=== PATIENT | male | born 1950 | race Caucasian/White ===

== ENCOUNTER → 2016-08-15 | Outpatient (CLI) | payer OTHER ==
[~2016-08-15] MED LIST: ALPRAZOLAM 0.50.5 M1; LISINOPRIL10 MG; NORCO 5-325 TA1 EACH PO; SIMVASTATIN20 MG
== END ==
LOC: CAT 11:27
DX: R07.9 Chest pain, unspecified (principal)

== ENCOUNTER → 2017-05-23 | Outpatient (CLI) | payer OTHER ==
--- NOTE | ~2017-05-23 | 2DMMODE ---
[facility] [address] [facility] [address] 2 D/M-MODE ECHOCARDIOGRAM Name: MOKADE Room #: REG [facility] [id number] Admission: 05/23/17 Attend Phys: Oseas Quintanilla Discharge: Date of : 50 Date of Service: 05/23/17 1244 Report #: [id number] THIS REPORT FOR: //name// APPROVED REPORT Study performed: 05/23/2017 12:05:53 EXAM: Comprehensive 2D, Doppler, and color-flow Echocardiogram Patient Location: Out-Patient Room #: Echo lab Status: routine BSA: 2.09 HR: 77 bpm BP: 124/78 mmHg Other Information Study Quality: Good Indications Chest Pain Hypertension/HDD HLP. 2D Dimensions RVDd: 34.16 mm LVEF(%): 60.32 (>50%) IVSd: 11.11 (7-11mm) LVOT Diam: 23.74 (18-24mm) LVDd: 52.76 mm PWd: 11.42 (7-11mm) Ascending Ao: 34.94 (22-36mm) LVDs: 35.64 (25-40mm) Aortic Root: 34.66 mm IVC: 19.00 mm Cisneros's LVEF: 60.32 % Volumes Left Atrial Volume (Systole) Single Plane 4CH: 46.65 mL Single Plane 2CH: 61.54 mL LA ESV Index: 28.00 mL/m2 Aortic Valve AoV Peak Apolinar.: 0.97 m/s AO Peak Gr.: 3.77 mmHg LVOT Max P.93 mmHg LVOT Max V: 0.99 m/s PABLO Vmax: 4.52 cm2 Mitral Valve E/A Ratio: 0.9 [facility] [place] [address] 2 D/M-MODE ECHOCARDIOGRAM Name: KADE MO Room #: [facility]#: [id number] Admission: 05/23/17 Attend Phys: Oseas Quintanilla Discharge: Date of : 50 Date of Service: 05/23/17 1244 Report #: [id number] MV Decel. Time: 156.30 ms MV E Max Apolinar.: 0.58 m/s MV A Apolinar.: 0.67 m/s MV PHT: 45.33 ms IVRT: 119.95 ms Pulmonary Valve PV Peak Apolinar.: 1.10 m/s PV Peak Gr.: 4.87 mmHg Pulmonary Vein P Vein S: 0.53 m/s P Vein A: 0.28 m/s P Vein D: 0.36 m/s P Vein A Dur.: 101.5 msec P Vein S/D Ratio: 1.47 Tricuspid Valve TR Peak Apolinar.: 2.48 m/s TR Peak Gr.: 24.57 mmHg PA Pressure: 30.00 mmHg Left Ventricle The left ventricle is normal size. There is normal LV segmental wall motion. There is normal left ventricular wall thickness. The left ventricular systolic function is normal. The left ventricular ejection fraction is within the normal range. LVEF is 55-60%. Grade I - abnormal relaxation pattern. Right Ventricle The right ventricle is normal size. The right ventricular systolic function is normal. Atria The left atrium size is normal. The right atrium size is normal. Aortic Valve The aortic valve is normal in structure. The Aortic valve is sclerotic. Trace aortic regurgitation. There is no aortic valvular stenosis. Mitral Valve The mitral valve is normal in structure. Mild mitral regurgitation. No evidence of mitral valve stenosis. Tricuspid Valve The tricuspid valve is normal in structure. There is trace tricuspid regurgitation There is no pulmonary hypertension. [address] [address] 2 D/M-MODE ECHOCARDIOGRAM Name: KADE MO Room #: REG [facility]#: [id number] Admission: 05/23/17 Attend Phys: Oseas Quintanilla Discharge: Date of : 50 Date of Service: 05/23/17 1244 Report #: [id number] Pulmonic Valve The pulmonary valve is normal in structure. There is no pulmonic valvular regurgitation. Great Vessels The aortic root is normal in size. IVC is normal in size and collapses >50% with inspiration. Pericardium There is no pericardial effusion. <Conclusion> The left ventricle is normal size. LVEF is 55-60%. The aortic valve is normal in structure. The Aortic valve is sclerotic. Trace aortic regurgitation. The mitral valve is normal in structure. Mild mitral regurgitation. The tricuspid valve is normal in structure. There is trace tricuspid regurgitation There is no pulmonary hypertension. The pulmonary valve is normal in structure. There is no pericardial effusion. <ELECTRONICALLY SIGNED> By: Oseas Sharma MD 05/23/17 1244 1244 1244 Oseas Sharma MD /INF
== END ==
LOC: CV 09:51
DX: R07.9 Chest pain, unspecified (principal); I10 Essential (primary) hypertension; E78.5 Hyperlipidemia, unspecified

== ENCOUNTER → 2020-04-22 | Outpatient (CLI) | payer OTHER | LOC: ULTRA 09:07 | PROVIDERS: ATTEND Family Medicine | DX: I70.0 Atherosclerosis of aorta (principal) ==

== ENCOUNTER → 2021-09-16 | Outpatient (CLI) | payer OTHER ==
--- NOTE | 2021-09-16 12:48 | EXE ---
[facility] [place] [address] STRESS ECHOCARDIOGRAM Name: KADE MO Room #: REG [facility]#: [id number] Admission: 09/16/21 Attend Phys: Randall Lester MD Discharge: Date of : 50 Report #: [id number] THIS REPORT FOR: cc: Randall Lester MD, Neal A. MD Lammoglia, Francisco J. MD ~ APPROVED REPORT Study performed: 09/16/2021 10:28:27 Exam: Stress Echocardiogram Indication: Chest pain Patient Location: Out-Patient Room #: 2 Status: routine Ht: 5 ft 10 in HR: 60 bpm BP: 118/76 mmHg Rhythm: NSR Medical History Cardiac Risk Factors: HTN Exercise History: Physically active Procedure The patient underwent an Exercise Stress Test using the Bo Protocol. Blood pressure, heart rate, and EKG were monitored. An Echocardiogram was performed by certified veterinary technician in four stages in quad fashion. At peak stress, four selected images were obtained and placed side by side with resting images for comparison. Stress Test Details Stress Test: Exercise stress testing was performed using a Bo protocol. HR Resting HR: 60 bpm Max Heart Rate (APMHR): 149 bpm Max HR Achieved: 133 bpm Target HR (85% APMHR): 126 bpm % of APMHR: 89 Recovery HR: 72 bpm HR response to stress: Normal HR response to stress BP Resting BP: 118/76 mmHg Max BP: 150/70 mmHg [facility] [address] [place] [address] STRESS ECHOCARDIOGRAM Name: KADE MO Room #: REG [facility]#: [id number] Admission: 09/16/21 Attend Phys: Randall Lester, Discharge: Date of : 50 Report #: [id number] Recovery BP: 110/60 mmHg BP response to stress: Normal blood pressure response to stress. ECG Clinical Reason for Termination: Maximal effort Exercise duration: 6 min sec Highest Stage Achieved: Stage 2: 2.5 mph at 12% grade. Exercise capacity: 7 METs Overall Exercise Capacity for Age: Good Stress ECG Conclusion 1. Subjectively negative for ischemia 2. Electrocardiographically negative for ischemia 3. No exercise-induced dysrhythmias 4. Average functional capacity Pre-Stress Echo The resting Echocardiogram showed normal left ventricular contractility with an estimated Ejection Fraction of about >55%. The resting echocardiogram demonstrated normal wall motion in all wall segments. Post-Stress Echo The stress Echocardiogram showed normal left ventricular contractility with an estimated Ejection Fraction of about 65-70%. Compared to rest, there were no stress-induced wall motion abnormalities. Conclusion Clinical Response: Non-ischemic Exercise Capacity: Average Stress ECG Response: Non-ischemic Stress Echo Images: Non-ischemic 1. Low risk study based on absence of development of exercise-induced wall motion abnormalities No prior study available for comparison. Other Information Study Quality: Good <Conclusion> [facility] [address] [place] [address] STRESS ECHOCARDIOGRAM Name: KADE MO [id number] Admission: 09/16/21 Attend Phys: Randall Lester, Discharge: Date of : 50 Report #: [id number] 1. Low risk study based on absence of development of exercise-induced wall motion abnormalities <ELECTRONICALLY SIGNED> By: Oseas Sharma MD 09/16/21 1247 46 Oseas Sharma MD /INF
== END ==
LOC: CV 09:07
PROVIDERS: ATTEND Family Medicine
DX: R07.89 Other chest pain (principal); I10 Essential (primary) hypertension